=== PATIENT | female | born 1975 ===

== ENCOUNTER → 2024-08-30 | Outpatient (CLI) | payer OTHER ==
[2024-08-30 10:00] LABS: Alanine Aminotransferase 43 U/L (7-40); Albumin 4.9 g/dL (3.2-4.8); Alkaline Phosphatase 70 U/L (46-116); Anion Gap 9 (5-15); Aspartate Aminotransferase 28 U/L (13-40); BUN/Creatinine Ratio 14.1 (10.0-20.0); Bilirubin, Total 0.6 mg/dL (0.2-1.0); Blood Urea Nitrogen 11 mg/dL (9-23); Calcium 9.9 mg/dL (8.7-10.4); Carbon Dioxide 27 mmol/L (20-31); Chloride 102 mmol/L (98-107); Cholesterol 222 mg/dL (< 200); Glucose 121 mg/dL (74-106); HDL Cholesterol 52 mg/dL (40-59); LDL Cholesterol 145 mg/dL (< 100); Potassium 3.8 mmol/L (3.5-5.1); Sodium 138 mmol/L (136-145); Triglycerides 146 mg/dL (< 150)
[2024-08-30 10:40] LABS: Creatinine, Urine 35.7 mg/dL (30.0-125.0)
== END | disposition home or self-care (01) ==
LOC: LAB 09:09
PROVIDERS: ATTEND Nurse Practitioner Family
DX: E11.65 Type 2 diabetes mellitus with hyperglycemia (principal); E78.5 Hyperlipidemia, unspecified; E66.09 Other obesity due to excess calories; Z00.01 Encounter for general adult medical examination with abnormal findings
CPT/HCPCS: 36415; 80053; 80061; 82043; 82306; 82570; 83036; 84443

== ENCOUNTER → 2025-02-21 | Day surgery (SDC) | payer OTHER ==
[2025-02-17 09:21] LABS: Hematocrit 40.6 % (36.0-46.0); Hemoglobin 13.7 g/dL (12.2-16.2); Mean Corpuscular Hemoglobin 28.3 pg (28.0-32.0); Mean Corpuscular Volume 84.1 fL (80.0-100.0); Nucleated Red Blood Cells % 0.0 %
[2025-02-17 09:43] LABS: Alanine Aminotransferase 26 U/L (7-40); Albumin 4.6 g/dL (3.2-4.8); Alkaline Phosphatase 72 U/L (46-116); Anion Gap 8 (5-15); BUN/Creatinine Ratio 8.9 (10.0-20.0); Calcium 9.5 mg/dL (8.7-10.4); Carbon Dioxide 27 mmol/L (20-31); Chloride 104 mmol/L (98-107); Potassium 4.2 mmol/L (3.5-5.1); Sodium 139 mmol/L (136-145)
[2025-02-17 09:49] LABS: INR 1.02 (0.9-1.15); Partial Thromboplastin Time 28.2 SEC (24.5-34.5); Prothrombin Time 10.8 sec (9.3-11.8)
[2025-02-17 09:58] LABS: Blood Urea Nitrogen 7 mg/dL (9-23); Glucose 162 mg/dL (74-106)
[2025-02-17 10:25] LABS: Bilirubin, Total 0.7 mg/dL (0.2-1.0); Total Protein 7.9 g/dL (5.7-8.2)
[~2025-02-21] VITALS: Ht 152.4 cm; Wt 79.4 kg
[~2025-02-21] MED LIST: ATOR20TA PO; EMPA1TAB3 PO; INSU100I69 SC; METF-372 PO; OMEP20TA PO; SODIUM CHLORIDE LOCK 10 ML ONE
[2025-02-21 09:25] VITALS: PULSE 65; RESP 13; O2SAT 100
[2025-02-21] MEDS: fentaNYL CITRATE 100 MCG/2 ML VL ONE (09:31)
[2025-02-21] MEDS: diphenhdrAMINE HCL 50 MG/1 ML VL ONE (09:31)
[2025-02-21] MEDS: MIDAZOLAM HCL 5 MG/ML-1ML VIAL ONE (09:31)
[2025-02-21 09:55] VITALS: PULSE 72; RESP 17; TEMP 97.9; O2SAT 98
--- NOTE | 2025-02-21 10:09 | DVHOP2 ---
Operative Report DATE OF OPERATION: 02/21/25 PROCEDURE: Diagnostic Colonoscopy. PREOPERATIVE INDICATION: The patient is a 50 -year-old female undergoing colonoscopy for colon cancer screening POSTOPERATIVE DIAGNOSES: 1. Mild early sigmoid diverticular disease 2. Trace internal hemorrhoids otherwise completely normal colonoscopy examination up to the cecum and terminal ileum PROCEDURE PERFORMED BY: Tati Chen M.D. SCOPE: Olympus videocolonoscope. ASA CLASS: 2. PREOPERATIVE MEDICATIONS: Versed 3 mg, Fentanyl 75 mcg, Benadryl 50 mg PROCEDURE IN DETAIL: After obtaining an informed consent, the patient was placed on left lateral decubitus position. She was then sedated with the above medications. A rectal examination was performed that was normal. The colonoscope was then passed through the anus into the rectosigmoid and through the descending, transverse, and ascending colon up to the cecum with visualization of the appendiceal orifice, base of the cecum and the ileocecal valve. The colonoscope was then withdrawn. The distal 5-10 cm of the terminal ileum were normal No polyps or masses were seen. There was no colitis.There was early sigmoid diverticular disease with some sigmoid diverticular openings noted On retroflexion and straight on view the patient had trace to 1+ internal hemorrhoids.The patient tolerated the procedure well without difficulty. WITHDRAWAL TIME: 6 minutes QUALITY OF THE PREP: [place] Bowel Prep score: 9. COMPLICATIONS : None SPECIMENS: None DISPOSITION: Stable D/C to home PLAN: 1. Repeat colonoscopy in 10 years 2. Resume GI soft diet advance as tolerated 3. Increase fluid and fiber intake 4. Outpatient follow up with me in 4-6 weeks to review results and discuss further management TATI CHEN MD Feb 21, 2025 10:09
[2025-02-21 10:15] VITALS: BP 141/77; PULSE 57; RESP 11; O2SAT 99
== END | disposition home or self-care (01) ==
LOC: GI 08:09
PROVIDERS: ATTEND Internal Medicine Gastroenterology
DX: Z12.11 Encounter for screening for malignant neoplasm of colon (principal); K64.8 Other hemorrhoids; K57.30 Diverticulosis of large intestine without perforation or abscess without bleeding; E78.5 Hyperlipidemia, unspecified; E11.9 Type 2 diabetes mellitus without complications; Z79.84 Long term (current) use of oral hypoglycemic drugs; Z79.899 Other long term (current) drug therapy; Z98.890 Other specified postprocedural states
CPT/HCPCS: 36415; 45378; 80053; 81025; 82962; 85025; 85610; 85730; J1200; J2250; J3010; J7030